=== PATIENT | female | born 1930 | race Asian ===

== ENCOUNTER → 2017-03-25 | Outpatient (CLI) | payer MEDICARE, MEDICAID ==
[2017-03-25 13:12] LABS: ABG A-A DIFF O2 23.2 mmHg (10-20.0); ABG BASE EXCESS -3.5 mmol/L (-2.0-3.0); ABG HCO3 22.3 mmol/L (22.0-26.0); ABG OXYHEMOGLOBIN 95.7 % (94.0-100.0); ABG PCO2 33 mmHg (35-45); ABG PH 7.426 (7.35-7.450); TEMPERATURE, FAHRENHEIT, BG 98.6 FAHREN (96.0-98.6)
[2017-03-25 13:13] LABS: ALLEN TEST, BLOOD GAS Positive
== END | disposition home or self-care (01) ==
LOC: RESP 12:38
PROVIDERS: ATTEND Internal Medicine Pulmonary Disease
DX: R06.00 Dyspnea, unspecified (principal)
CPT/HCPCS: 82805